=== PATIENT | male | born 1960 | race Caucasian/White ===

== ENCOUNTER 2023-09-29 10:24 | Emergency (ER) | payer OTHER ==
[2023-09-29] MEDS ORDERED: Lidocaine 1% 5 ML VIAL INJECT ONE (10:58)
[2023-09-29] MEDS ORDERED: Diphtheria,Pertussis(Acell),Tetanus Vaccine 0.5 ML Syringe IM ONE (10:58)
[2023-09-29] MEDS ORDERED: Bacitracin Oint 1 GM U/D Packet TOP ONE (11:23)
[2023-09-29] MEDS ORDERED: Bacitracin Oint 1 GM U/D Packet ONE (11:36)
== END 2023-09-29 11:45 | disposition home or self-care (01) ==
LOC: JP.ED 10:24
DX: S61.212A Laceration without foreign body of right middle finger without damage to nail, initial encounter (principal); I10 Essential (primary) hypertension; F17.210 Nicotine dependence, cigarettes, uncomplicated; Z23 Encounter for immunization; Z91.148 Patient's other noncompliance with medication regimen for other reason; Z79.899 Other long term (current) drug therapy; W23.1XXA Caught, crushed, jammed, or pinched between stationary objects, initial encounter; Y92.89 Other specified places as the place of occurrence of the external cause; Y99.0 Civilian activity done for income or pay
CPT/HCPCS: 12001; 90471; 90715; 99282-25

== ENCOUNTER 2024-10-10 12:12 | Emergency (ER) | payer MEDICARE ==
[2024-10-10] MEDS ORDERED: Sodium Chloride 0.9% 10 ML Syringe FLUSH PRN (12:13)
[2024-10-10 13:09] LABS: A/G RATIO 1.4 (1.2-2.2); ALANINE AMINOTRANSFERASE,ALT 35 U/L (12-78); ALKALINE PHOSPHATASE 73 U/L (46-116); ASPARTATE AMNIOTRANSFERASE,AST 36 U/L (15-37); BILIRUBIN TOTAL 1.7 mg/dL (0.2-1.0); BLOOD UREA NITROGEN,BUN 13 mg/dL (7-18); CALCIUM 9.3 mg/dL (8.5-10.1); CARBON DIOXIDE,CO2 25 mmol/L (21-32); CHLORIDE,CL 77 mmol/L (100-108); CREATININE 1.6 mg/dL (0.8-1.3); ESTIMATED GFR 48 mL/min (>60); GLUCOSE RANDOM 75 mg/dL (74-106); POTASSIUM,K 3.7 mmol/L (3.6-5.2); PROTEIN TOTAL,TP 6.9 g/dL (6.4-8.2)
[2024-10-10 13:13] LABS: ANION GAP 17.7 mmol/L (5.0-14.0); SODIUM,NA 116 mmol/L (140-148)
[2024-10-10 13:14] LABS: BASOPHILS ABSOLUTE AUTO 0.03 K/uL (0.00-0.10); BASOPHILS PERCENT AUTO 0.4 % (0.1-1.3); EOSINOPHILS ABSOLUTE AUTO 0.08 K/uL (0.00-0.40); EOSINOPHILS PERCENT AUTO 1.1 % (0.0-5.4); HEMATOCRIT 27.5 % (38.4-49.7); HEMOGLOBIN 10.9 g/dL (12.9-16.9); IMMATURE GRAN ABSOLUTE AUTO 0.05 K/uL (0.00-0.23); IMMATURE GRAN PERCENT AUTO 0.7 % (0.0-0.7); LYMPHOCYTES ABSOLUTE AUTO 0.82 K/uL (0.8-3.3); LYMPHOCYTES PERCENT AUTO 11.7 % (11.4-47.7); MEAN CORPUSCULAR HEMOGLOBIN 34.4 pg (31.6-35.5); MEAN CORPUSCULAR HGB CONC 39.6 g/dL (31.6-35.5); MEAN CORPUSCULAR VOLUME 86.8 fL (81.4-99.0); MONOCYTES ABSOLUTE AUTO 0.62 K/uL (0.20-0.90); MONOCYTES PERCENT AUTO 8.9 % (3.3-12.6); NEUTROPHILS ABSOLUTE AUTO 5.39 K/uL (1.0-7.6); NEUTROPHILS PERCENT AUTO 77.2 % (40.0-78.1); PLATELET COUNT,PLT 194 K/uL (130-375); RED BLOOD CELL COUNT 3.17 M/uL (4.14-5.76)
[2024-10-10] MEDS: Sodium Chloride 0.9% 100 ML IV SCH (13:18)
[2024-10-10] MEDS: Iopamidol 755 Mg/ML 100 ML Bottle IV ONE (13:18)
[2024-10-10] MEDS: Sodium Chloride 0.9% 500 ML IV ONE (13:33)
== END 2024-10-10 15:00 | disposition left against medical advice (07) ==
LOC: JP.ED 12:12
DX: E87.1 Hypo-osmolality and hyponatremia (principal); Z79.899 Other long term (current) drug therapy
CPT/HCPCS: 36415; 70450; 70496; 70498; 80053; 80307; 82140; 83605; 85025; 96360; 99285; J3490; J7040; Q9967